=== PATIENT | male | born 1935 | race Caucasian/White ===

== ENCOUNTER 2018-12-05 14:03 | Emergency (ER) | payer OTHER ==
[2018-12-05] MEDS ORDERED: ONDANSETRON 4 MG/2 ML VIAL ONE (15:22)
[2018-12-05 16:05] LABS: Absolute Lymphocytes (CBC) 0.9 K/uL (0.7-4.9); Basophils % 0.5 % (0-1.3); Hematocrit 36.6 % (39.6-49.0); Lymphocytes % 14.4 % (15.3-44.8); MPV 8.6 fL (7.6-11.3); Protime INR 1.14; RBC Red Blood Cell Count 4.07 M/uL (4.33-5.43)
[2018-12-05 16:26] LABS: ALT/SGPT 23 U/L (12-78); AST/SGOT 15 U/L (15-37); Albumin 3.9 g/dL (3.4-5.0); Alkaline Phosphatase 51 U/L (45-117); BUN Blood Urea Nitrogen 14 mg/dL (7-18); Bicarbonate 27 mmol/L (21-32); Bilirubin Direct 0.2 mg/dL (0-0.2); Bilirubin Total 0.5 mg/dL (0.2-1.0); Glucose Level 119 mg/dL (74-106); Lipase 43 U/L (73-393); NT PRO-BNP 226 pg/mL (<450); Potassium 4.1 mmol/L (3.5-5.1); Protein, Total 6.4 g/dL (6.4-8.2); Sodium Level 131 mmol/L (136-145); Troponin (Emerg Dept Use Only) < 0.02 ng/mL (0.0-0.045)
[2018-12-05 16:27] LABS: Urine Blood 2+ (NEG); Urine Glucose NEGATIVE (NEG); Urine Protein NEGATIVE (NEG); Urine Specific Gravity 1.015 (1.005-1.030)
[2018-12-05 17:05] LABS: Urine Bacteria <20 /HPF (NONE SEEN); Urine Culture Reflex Order NOT NEEDED; Urine RBC <5 /HPF (NONE SEEN)
--- NOTE | 2018-12-05 20:49 | EDPHYS ---
Physician Documentation [facility] Name: Homero Segura Age: 83 yrs Sex: Male : 1935 Arrival Date: 12/05/2018 Time: 14:04 Bed 18 Private MD: Taisha Myers ED Physician Parker Lorenzana HPI: 12/05 15:20 This 83 yrs old Male presents to ER via Ambulatory with complaints of cp Nausea/Vomiting, Weakness. 15:20 The patient presents to the emergency department with nausea, that is moderate, cp abdominal pain, of the abdomen diffusely. Onset: The symptoms/episode began/occurred 4 day(s) ago. 15:20 Possible causes: sick contacts, by family, . Associated signs and symptoms: cp Pertinent positives: anorexia, Pertinent negatives: diarrhea, fever, GI bleeding, vomiting. Severity of symptoms: in the emergency department the symptoms are unchanged despite home interventions. Historical: - Allergies: 14:34 No Known Allergies; aj1 - PMHx: 14:34 Alzheimers; Diabetes - NIDDM; Hyperlipidemia; Hypertension; Myocardial infarction; aj1 neuropathy; skin cancer; - PSHx: 14:34 Appendectomy; aj1 - Immunization history:: Flu vaccine is not up to date. - Social history:: Smoking status: Patient/guardian denies using tobacco. - Ebola Screening: : Patient denies travel to an Ebola-affected area in the 21 days before illness onset. ROS: 15:30 Constitutional: Positive for poor PO intake, Negative for body aches, chills, fever. cp 15:30 Eyes: Negative for injury, pain, redness, and discharge. cp 15:30 ENT: Negative for drainage from ear(s), ear pain, sore throat, difficulty swallowing, difficulty handling secretions. 15:30 Cardiovascular: Negative for chest pain, edema. 15:30 Respiratory: Negative for cough, shortness of breath, wheezing. 15:30 Abdomen/GI: Positive for abdominal pain, nausea, anorexia, Negative for vomiting, diarrhea, constipation, black/tarry stool, rectal bleeding. 15:30 Back: Negative for radiated pain. 15:30 : Negative for urinary symptoms. 15:30 Neuro: Positive for weakness, Negative for altered mental status, dizziness, headache, syncope. 15:30 All other systems are negative. Exam: 15:35 Constitutional: The patient appears in no acute distress, alert, non-diaphoretic, cp non-toxic, well developed, frail. 15:35 Head/Face: Normocephalic, atraumatic. cp 15:35 Eyes: Periorbital structures: appear normal, Pupils: equal, round, and reactive to light and accomodation, Extraocular movements: intact throughout, Conjunctiva: normal, no exudate, no injection, Sclera: no appreciated abnormality, Lids and lashes: appear normal, bilaterally. 15:35 ENT: External ear(s): are unremarkable, Ear canal(s): are normal, clear, TM's: dullness, bilaterally, Nose: is normal, Mouth: Lips: dry, Oral mucosa: dry, Posterior pharynx: Airway: no evidence of obstruction, patent. 15:35 Neck: ROM/movement: is normal, is supple, without pain, no range of motions limitations, no meningismus, no nuchal rigidity. 15:35 Chest/axilla: Inspection: normal, Palpation: is normal, no crepitus, no tenderness. 15:35 Cardiovascular: Rate: normal, Rhythm: regular, Edema: is not appreciated, JVD: is not appreciated. 15:35 Respiratory: the patient does not display signs of respiratory distress, Respirations: normal, no use of accessory muscles, no retractions, no splinting, no tachypnea, labored breathing, is not present, Breath sounds: are clear throughout, no decreased breath sounds, no stridor, no wheezing. 15:35 Abdomen/GI: Inspection: abdomen appears normal, Bowel sounds: active, all quadrants, Palpation: soft, in all quadrants, rebound tenderness, is not appreciated, voluntary guarding, is not appreciated, involuntary guarding, is not appreciated, very mild tenderness to palpation lower abdomen. 15:35 Back: pain, is absent, ROM is normal. 15:35 Skin: no rash present. 15:35 Neuro: Orientation: no acute changes, per family, Mentation: no acute changes, per family, Cerebellar function: Romberg testing is negative, Motor: moves all fours, strength is normal. 15:45 ECG was reviewed by the Attending Physician. cp Vital Signs: 14:34 BP 124 / 62; Pulse 61; Resp 20; Temp 97.3; Pulse Ox 98% on R/A; Weight 60.78 kg (R); aj1 Pain 2/10; 16:22 BP 146 / 77; Pulse 70; Resp 18; Pulse Ox 99% on R/A; Pain 0/10; em 17:25 BP 139 / 91; Pulse 74; Resp 18; Pulse Ox 97% on R/A; jd2 19:15 BP 129 / 77; Pulse 60; Resp 20; Pulse Ox 97% on R/A; Pain 0/10; lp1 20:00 BP 164 / 88; Pulse 63; Resp 18; Pulse Ox 97% on R/A; lp1 MDM: 15:23 Patient medically screened. cp 15:30 Differential diagnosis: gastritis, diverticulitis, viral gastroenteritis, cp gastroenteritis, dehydration, UTI, electrolyte abnormality, LA. 20:47 Data reviewed: vital signs, nurses notes, lab test result(s), EKG. cp 20:47 Counseling: I had a detailed discussion with the patient and/or guardian regarding: the cp historical points, exam findings, and any diagnostic results supporting the discharge/admit diagnosis, lab results, to return to the emergency department if symptoms worsen or persist or if there are any questions or concerns that arise at home. Response to treatment: the patient's symptoms have markedly improved after treatment, patient is well hydrated. VSS. Patient reports to be feeling better. Nausea improved and patient tolerating po fluids. Will discharge to home for continued monitoring. 12/05 15:16 Order name: Basic Metabolic Panel; Complete Time: 16:26 cp 12/05 17:42 Interpretation: Normal except: NA 131; CL 97; GLUC 119; CA 8.3. cp 12/05 15:16 Order name: CBC with Diff; Complete Time: 16:26 cp 12/05 16:27 Interpretation: Normal except: RBC 4.07; HGB 12.6; HCT 36.6; PLT 127; GINA% 74.6; LYM% cp 14.4. 12/05 15:16 Order name: LFT's; Complete Time: 17:41 cp 12/05 17:42 Interpretation: Reviewed. 12/05 15:16 Order name: Magnesium; Complete Time: 17:41 cp 12/05 15:16 Order name: NT PRO-BNP; Complete Time: 17:41 cp 12/05 15:16 Order name: PT-INR; Complete Time: 16:26 cp 12/05 15:16 Order name: Troponin (emerg Dept Use Only); Complete Time: 16:27 cp 12/05 16:27 Interpretation: Within normal limits. cp 12/05 15:16 Order name: EKG; Complete Time: 15:17 cp 12/05 15:16 Order name: Lipase; Complete Time: 17:41 cp 12/05 17:41 Interpretation: Reviewed. cp 12/05 15:16 Order name: Urine Microscopic Only; Complete Time: 17:41 cp 12/05 17:41 Interpretation: Reviewed. cp 12/05 16:04 Order name: Urine Dipstick--Ancillary (enter results); Complete Time: 17:42 gm 12/05 17:42 Interpretation: Normal except: UBLD 2+. cp 12/05 18:40 Order name: XRAY Abdomen Acute Series cp 12/05 15:16 Order name: Cardiac monitoring; Complete Time: 16:06 cp 12/05 15:16 Order name: EKG - Nurse/Tech; Complete Time: 16:06 cp 12/05 15:16 Order name: IV Saline Lock; Complete Time: 16:06 cp 12/05 15:16 Order name: Labs collected and sent; Complete Time: 16:06 cp 12/05 15:16 Order name: O2 Per Protocol; Complete Time: 16:06 cp 12/05 15:16 Order name: O2 Sat Monitoring; Complete Time: 16:06 cp 12/05 15:16 Order name: Urine Dipstick-Ancillary (obtain specimen); Complete Time: 16:06 cp 12/05 17:43 Order name: PO challenge; Complete Time: 18:01 cp EC:45 Rate is 55 beats/min. Rhythm is regular. NC interval is normal. QRS interval is normal. cp QT interval is normal. T waves are Inverted in lead aVR. Interpreted by me. Reviewed by me. Administered Medications: 15:32 Drug: Zofran 4 mg Route: IVP; Site: right forearm; hb 16:04 Follow up: Response: No adverse reaction; Nausea is decreased em Disposition: 12/05/18 20:48 Discharged to Home. Impression: Nausea, Unspecified abdominal pain, Weakness - general. - Condition is Stable. - Discharge Instructions: Abdominal Pain, Adult, Nausea, Adult, Weakness, [id number]. - Prescriptions for Zofran 4 mg Oral Tablet - take 1 tablet by ORAL route every 12 hours As needed; 20 tablet. - Medication Reconciliation Form, Thank You Letter, Antibiotic Education, Prescription Opioid Use form. - Follow up: Private Physician; When: 1 - 2 days; Reason: Recheck today's complaints. - Problem is new. - Symptoms have improved. Addendum: 12/09/2018 20:25 Co-signature as Attending Physician, Parker Lorenzana MD. r n Signatures: Dispatcher [employer] [facility] Geovanna Bhat RN RN aj1 Parker Lorenzana MD MD rn Genesis Chirinos RN RN lp1 Milton Page PA PA cp Dana Tompkins RN RN Bassem Knapp [employer]CH[employer]ICAL OFFICER em Corrections: (The following items were deleted from the chart) 12/05 17:42 16:26 Normal except: NA 131; CL 97; GLUC 119. cp cp 18:49 17:44 Abdomen Pelvis W Con+CT.RAD.BRZ ordered. [facility] 21:30 20:48 12/05/2018 20:48 Discharged to Home. Impression: Nausea; Unspecified abdominal lp1 pain; Weakness - general. Condition is Stable. Forms are Medication Reconciliation Form, Thank You Letter, Antibiotic Education, Prescription Opioid Use. Follow up: Private Physician; When: 1 - 2 days; Reason: Recheck today's complaints. Problem is new. Symptoms have improved. cp
--- NOTE | 2018-12-05 20:49 | ER ---
Nurse's Notes [facility] Name: Homero Segura Age: 83 yrs Sex: Male : 1935 Arrival Date: 12/05/2018 Time: 14:04 Bed 18 Private MD: Taisha Myers Diagnosis: Nausea;Unspecified abdominal pain;Weakness-general Presentation: 12/05 14:32 Presenting complaint: Child states: Nausea, abdominal pain, and weakness for the past 4 aj1 days. Denies N/V/D. Denies fever. Transition of care: patient was not received from another setting of care. Onset of symptoms was 2018. Risk Assessment: Do you want to hurt yourself or someone else? Patient reports no desire to harm self or others. Initial Sepsis Screen: Does the patient meet any 2 criteria? No. Patient's initial sepsis screen is negative. Does the patient have a suspected source of infection? No. Patient's initial sepsis screen is negative. Care prior to arrival: None. 14:32 Method Of Arrival: Ambulatory aj1 14:32 Acuity: JEAN 3 aj1 Triage Assessment: 14:34 General: Appears in no apparent distress. comfortable, Behavior is calm, cooperative, aj1 appropriate for age. Pain: Complains of pain in abdomen Pain currently is 2 out of 10 on a pain scale. Neuro: Level of Consciousness is awake, alert, obeys commands. Cardiovascular: Patient's skin is warm and dry. Respiratory: Airway is patent Respiratory effort is even, unlabored, Respiratory pattern is regular, symmetrical. GI: Reports lower abdominal pain, upper abdominal pain, nausea. Historical: - Allergies: 14:34 No Known Allergies; aj1 - PMHx: 14:34 Alzheimers; Diabetes - NIDDM; Hyperlipidemia; Hypertension; Myocardial infarction; aj1 neuropathy; skin cancer; - PSHx: 14:34 Appendectomy; aj1 - Immunization history:: Flu vaccine is not up to date. - Social history:: Smoking status: Patient/guardian denies using tobacco. - Ebola Screening: : Patient denies travel to an Ebola-affected area in the 21 days before illness onset. Screenin:20 Abuse screen: Denies threats or abuse. Nutritional screening: No deficits noted. em Tuberculosis screening: No symptoms or risk factors identified. Fall Risk None identified. Assessment: 15:30 General: Appears in no apparent distress. comfortable, Behavior is calm, cooperative, em Denies fever. Pain: Complains of pain in abdomen Pain currently is 2 out of 10 on a pain scale. Pain began 2-3 days ago. Neuro: Level of Consciousness is awake, alert, obeys commands, Oriented to person, place, time, situation, [employer] Rep are equal bilaterally Moves all extremities. Gait is steady, Speech is normal, Facial symmetry appears normal, Intact Reports weakness. Cardiovascular: Capillary refill < 3 seconds Patient's skin is warm and dry. Respiratory: Airway is patent Respiratory effort is even, unlabored, Respiratory pattern is regular, symmetrical. GI: Abdomen is flat, Bowel sounds present X 4 quads. Abd is soft and non tender X 4 quads. Reports nausea, Patient currently denies vomiting. Derm: Skin is intact, is fragile, Skin is pink, warm \T\ dry. Musculoskeletal: Capillary refill < 3 seconds, Range of motion: intact in all extremities. 15:45 Reassessment: I agree with previous assessment. hb 16:30 Reassessment: Patient appears in no apparent distress at this time. Patient and/or em family updated on plan of care and expected duration. Pain level reassessed. Patient is alert, oriented x 3, equal unlabored respirations, skin warm/dry/pink. Patient states feeling better. Patient states symptoms have improved. 17:55 Reassessment: given some ice water for PO challenge, tolerated well. em 18:07 Reassessment: Patient appears in no apparent distress at this time. Patient and/or em family updated on plan of care and expected duration. Pain level reassessed. Patient is alert, oriented x 3, equal unlabored respirations, skin warm/dry/pink. Patient states feeling better. Patient states symptoms have improved. 19:16 Reassessment: Patient is alert, oriented x 3, equal unlabored respirations, skin lp1 warm/dry/pink. Patient denies pain at this time. Patient states feeling better. Patient states symptoms have improved. Vital Signs: 14:34 BP 124 / 62; Pulse 61; Resp 20; Temp 97.3; Pulse Ox 98% on R/A; Weight 60.78 kg (R); aj1 Pain 2/10; 16:22 BP 146 / 77; Pulse 70; Resp 18; Pulse Ox 99% on R/A; Pain 0/10; em 17:25 BP 139 / 91; Pulse 74; Resp 18; Pulse Ox 97% on R/A; jd2 19:15 BP 129 / 77; Pulse 60; Resp 20; Pulse Ox 97% on R/A; Pain 0/10; lp1 20:00 BP 164 / 88; Pulse 63; Resp 18; Pulse Ox 97% on R/A; lp1 ED Course: 14:04 Patient arrived in ED. as 14:04 Taisha Myers MD is Private Physician. as 14:33 Triage completed. aj1 14:34 Arm band placed on Patient placed in waiting room, Patient notified of wait time. aj1 15:00 Bassem Knapp LVN is Primary Nurse. em 15:06 Milton Page PA is PHCP. cp 15:06 Parker Lorenzana MD is Attending Physician. cp 15:20 Patient has correct armband on for positive identification. Placed in gown. Bed in low em position. Call light in reach. Side rails up X2. Adult w/ patient. night monitor on. Pulse ox on. NIBP on. 15:30 Initial lab(s) drawn, by me, sent to lab. Inserted saline lock: 22 gauge in right em forearm, using aseptic technique. Blood collected. 19:16 No provider procedures requiring assistance completed. lp1 20:07 XRAY Abdomen Acute Series In Process Unspecified. EDMS 21:30 IV discontinued, No redness/swelling at site. Pressure dressing applied. lp1 Administered Medications: 15:32 Drug: Zofran 4 mg Route: IVP; Site: right forearm; hb 16:04 Follow up: Response: No adverse reaction; Nausea is decreased em Outcome: 20:48 Discharge ordered by MD. cp 21:30 Discharged to home via wheelchair, with family. lp1 21:30 Condition: good 21:30 Discharge instructions given to patient, family, Instructed on discharge instructions, follow up and referral plans. medication usage, Demonstrated understanding of instructions, follow-up care, medications, Prescriptions given X 1. 21:30 Patient left the ED. lp1 Signatures: Dispatcher [employer] Geovanna Cleveland RN RN aj1 Bassem Knapp LVN LVN em Rachel Vargas as Genesis Chirinos RN RN lp1 Milton Page PA PA cp Baxter, Heather, RN RN hb Danette Beckman jd2
[2018-12-05 22:35] VITALS: TEMP 97.3
[2018-12-05 22:46] VITALS: BP 164/88; O2SAT 97
--- NOTE | 2018-12-06 08:46 | RAD REPORT ---
EXAM DESCRIPTION: RAD - Abdomen Acute Series - 12/05/2018 8:07 pm CLINICAL HISTORY: NAUSEA / VOMITING COMPARISON: Chest Single View dated 02/24/2017; Abdomen Pelvis W Contrast dated 02/24/2017 FINDINGS: No focal mass or consolidation. Scattered fibrotic lung changes are present similar to com parison. No failure or volume overload. Heart size and pulmonary vasculature are normal. No pleural e ffusion, pneumothorax or other acute cardiopulmonary process seen. Bowel gas pattern is nonspecific. No bowel obstruction, free air or other acute findings. No suspicio us calcifications. Prominent disc and bony degenerative change present. Hip joint degenerative changes mild for age. Pro minent arterial tree calcifications present. IMPRESSION: Scattered fibrotic lung change with no acute chest finding. No obstruction, free air or other acute abdominal or pelvic finding seen.
--- NOTE | 2018-12-06 09:47 | EKG ---
Test Date: 2018-12-05 Test Time: 15:38:02 Employee Health Nurse: [place] MEASUREMENT RESULTS: Intervals: Rate: 55 MO: 178 QRSD: 92 QT: 440 QTc: 420 [place]: P: 37 MO: 178 QRS: 17 T: 67 INTERPRETIVE STATEMENTS: Sinus bradycardia Low voltage QRS Cannot rule out Anteroseptal infarct, age undetermined Abnormal ECG Compared to ECG 02/24/2017 08:46:42 No significant changes Electronically Signed On 12-06-18 09:46:30 CDT by Raulito Stockton
== END 2018-12-05 21:30 | disposition home or self-care (01) ==
LOC: ER 14:03
DX: R10.9 Unspecified abdominal pain (principal); R53.1 Weakness
CPT/HCPCS: 93005; 85025; 80048; 36415; 83735; 85610; 80076; 84484; 83690; 83880; 74022; 96374; 99284; J2405; 81003; 81015